=== PATIENT | female | born 1955 | race American Indian/Alaskan Native ===

== ENCOUNTER 2017-04-21 12:35 | Outpatient (CLI) | payer OTHER ==
--- NOTE | 2017-04-22 13:11 | Magnetic Resonance Report ---
MRI PELVIS WITHOUTAND WITH CONTRAST: 04/21/17 12:35:00 CLINICAL: Pelvic pain. COMPARISON :CT abdomen and pelvis with contrast 02/20/16 TECHNIQUE: Sagittal, coronal and axial T1 and T2 fat sat sequences plus sagittal, coronal and axial postcontrast T1 fat sequences on a 1.5 Kajal magnet. 12.0 cc of Multihance was injected intravenously for the contrast portion of the exam. Consent was obtained prior to the administration of contrast. FINDINGS: Enlarged fibroid uterus.The uterus measures 11.0 cm craniocaudal dimension by 12.1 cm AP dimension by 9.3 cm transverse dimension. Too numerous to count leiomyomata. The uterus is retroverted and the largest fibroid is intramural fibroid in the anterior uterine body measuring 6.3 cm. It demonstrates no enhancement postcontrast. Most of the other fibroids demonstrated please heterogeneous enhancement. The endometrium is mildly thickened and measures 12 mm maximum. The cervix is normal. Ovaries are not identified. Normal urinary bladder, rectum and bowel. No ascites. No adnexal mass. The bones and soft tissues are unremarkable. IMPRESSION: 1. Uterine leiomyomata with too numerous to count fibroids and a dominant nonenhancing 6.3 cm intramural fibroid in the anterior uterine body. 2. Normal endometrium. 3. Ovaries not identified.
== END 2017-04-21 12:36 | disposition home or self-care (01) ==
LOC: SPVIMAG 12:35
PROVIDERS: ATTEND Radiology Vascular & Interventional Radiology
DX: D25.1 Intramural leiomyoma of uterus (principal)
CPT/HCPCS: 72197; A9577